=== PATIENT | female | born 1945 | race Caucasian/White ===

== ENCOUNTER → 2020-10-10 | Outpatient (CLI) | payer MEDICARE ==
[~2020-10-10] MED LIST: ALEN70TA77 PO; ALLO300T PO; ASPI81TA45 PO; CHOL10003 PO; CINN500C2 PO; FESO4TAB PO; MAGN400T9 PO; MELO15TA24 PO; METF500T17 PO; PRAV40TA2 PO; PREG100C PO; SERT100T32 PO; TRAM50TA2 PO; Vitamin B12 PO
[2020-10-10 14:58] LABS: BASOPHILS % (AUTO) 1 % (0-1); EOSINOPHILS % (AUTO) 2 % (1-7); LYMPHOCYTES % (AUTO) 30 % (22-44); MEAN CORPUSCULAR HEMOGLOBIN 31.8 pg (27.0-34.8); MEAN CORPUSCULAR HGB CONC 33.5 g/dL (32.4-35.8); MEAN PLATELET VOLUME 7.9 fL (7.4-10.4); MONOCYTES % (AUTO) 9 % (2-9); NEUTROPHILS % (AUTO) 58 % (42-75); PLATELET COUNT 220 x10^3/uL (130-400); RED BLOOD COUNT 4.43 x10^6/uL (3.82-5.3); RED CELL DISTRIBUTION WIDTH 14.9 % (9.6-15.2)
[2020-10-10 15:11] LABS: CHLORIDE 111 mmol/L (98-107)
[2020-10-10 15:14] LABS: INTERNATIONAL NORMALIZED RATIO 0.96 (0.93-1.1); PROTHROMBIN TIME 10.3 Seconds (9.6-11.5)
[2020-10-10 15:20] LABS: ALANINE AMINOTRANSFERASE 29 U/L (12-78); ALBUMIN 4.3 g/dL (3.4-5.0); ALKALINE PHOSPHATASE 50 U/L (45-117); ANION GAP 3 mmol/L (5-15); BILIRUBIN,TOTAL 0.6 mg/dL (0.2-1.0); CALCIUM 9.3 mg/dL (8.5-10.1); CREATININE 0.66 mg/dL (0.55-1.02); TOTAL PROTEIN 7.4 g/dL (6.4-8.2)
== END | disposition home or self-care (01) ==
LOC: STAR 13:39
PROVIDERS: ATTEND Neurological Surgery
DX: Z01.818 Encounter for other preprocedural examination (principal); M80.08XS Age-related osteoporosis with current pathological fracture, vertebra(e), sequela; I44.4 Left anterior fascicular block; R94.31 Abnormal electrocardiogram [ECG] [EKG]
CPT/HCPCS: 36415; 80053; 85025; 85610; 85730; 93005

== ENCOUNTER 2020-10-16 06:45 | Day surgery (SDC) | payer MEDICARE ==
[~2020-10-16] VITALS: Ht 170.2 cm; Wt 85.6 kg
[~2020-10-16 06:45] MED LIST changes: +BACITRACIN OINT 500U/GM, 15 GM ONE; +BUPIVACAINE/PF 0.5% ONE; +EPINEPHRINE 1 MG/ML, 1ML ONE
[2020-10-16] MEDS ORDERED: LACTATED RINGERS 1,000 ML IV SCH (07:30)
[2020-10-16] MEDS ORDERED: CHLORHEXIDINE 15 ML UDC PO ONE (07:30)
[2020-10-16] MEDS ORDERED: OMNIPAQUE 180 MG/ML, 20ML VIAL ONE (09:33)
[2020-10-16] MEDS ORDERED: NEOSTIGMINE 1 MG/ML, 10ML ONE (09:58)
[2020-10-16] MEDS ORDERED: ROCURONIUM 10 MG/ML,10ML ONE (09:58)
[2020-10-16] MEDS ORDERED: DEXAMETHASONE 4 MG/ML, 1ML ONE (09:58)
[2020-10-16] MEDS ORDERED: GLYCOPYRROLATE 0.2MG/1ML, 5ML ONE (09:58)
[2020-10-16] MEDS ORDERED: ONDANSETRON 2MG/ML, 2ML ONE (09:58)
[2020-10-16] MEDS ORDERED: CEFAZOLIN 1,000 MG ONE (09:58)
[2020-10-16] MEDS ORDERED: PROPOFOL 10 MG/ML, 20ML ONE (09:58)
[2020-10-16] MEDS ORDERED: FENTANYL PF 100 MCG/2ML ONE (10:01)
[2020-10-16] MEDS ORDERED: ALBUTEROL SULFATE 2.5 MG/3 ML NPPB PRN (11:00)
[2020-10-16] MEDS ORDERED: LABETALOL 5MG/ML, 20ML IV PRN (11:00)
[2020-10-16] MEDS ORDERED: hydrALAzine 20 MG/ML, 1ML IV PRN (11:00)
[2020-10-16] MEDS ORDERED: FENTANYL PF 100 MCG/2ML IV PRN (11:00)
[2020-10-16] MEDS ORDERED: OXYcodone 5 MG/5 ML ORAL.SOL UDC PO PRN (11:00)
[2020-10-16] MEDS ORDERED: HALOPERIDOL 5 MG/ML IV PRN (11:00)
[2020-10-16] MEDS ORDERED: HYDROmorphone 2 MG/ML, 1ML IVPush PRN (11:00)
[2020-10-16] MEDS ORDERED: PROMETHAZINE 25 MG/ML, 1ML IV PRN (11:00)
== END 2020-10-16 13:30 | disposition home or self-care (01) ==
LOC: OR 06:45 → OUT 13:30
PROVIDERS: ATTEND Neurological Surgery
DX: M80.88XA Other osteoporosis with current pathological fracture, vertebra(e), initial encounter for fracture (principal); M54.12 Radiculopathy, cervical region; I10 Essential (primary) hypertension; E78.5 Hyperlipidemia, unspecified; E11.9 Type 2 diabetes mellitus without complications; Z79.82 Long term (current) use of aspirin; Z79.84 Long term (current) use of oral hypoglycemic drugs; Z79.899 Other long term (current) drug therapy; Z96.651 Presence of right artificial knee joint; Z98.890 Other specified postprocedural states; Z82.61 Family history of arthritis; Z83.3 Family history of diabetes mellitus; Z82.49 Family history of ischemic heart disease and other diseases of the circulatory system; Z81.8 Family history of other mental and behavioral disorders
CPT/HCPCS: 22514; 36415; 72100; 82962; 86850; 86900; 88307; 88311; C1713; J0171; J0690; J1100; J2405; J2704; J2710; J3010; Q9965